=== PATIENT | male | born 1960 | race Caucasian/White ===

== ENCOUNTER 2023-10-25 13:04 | Outpatient (OUT) | payer OTHER, SELFPAY ==
--- NOTE | 2023-10-25 | XR_ITS ---
The [address] [address] Patient Name: MARCOS HERNANDEZ MRN: [id number] date: 1960 Sex: M Assigned Patient Location: Current Patient Location: Accession/Order Number: [id number] Exam Date: 10/25/2023 14:35 Report Date: 10/25/2023 15:35 At the request of: MIRACLE GONZALEZ Procedure: XR ankle RT min 3V PROCEDURE: XR ankle RT min 3V, XR foot RT min 3V COMPARISON: 08/22/2023 HISTORY: RIGTH ANKLE PAIN FINDINGS: BONES:Posterior calcaneal osteotomy with bony bridging. Moderate degenerative changes with joint space narrowing and marginal osteophyte formation. Permeative pattern of the bones. Contour deformity of the lateral cuneiform likely representing chronic change. SOFT TISSUES:Mild diffuse soft tissue swelling. Vascular calcifications EFFUSION:Small tibiotalar joint effusion OTHER: Negative. XR/XR ankle RT min 3V IMPRESSION: Posterior calcaneal osteotomy Permeative pattern of the bones, consider osteopenia Electronically authenticated by: JON COE Date: 10/25/2023 15:35
--- NOTE | 2023-10-25 | XR_ITS ---
The [address] [address] Patient Name: MARCOS HERNANDEZ MRN: [id number] date: 1960 Sex: M Assigned Patient Location: Current Patient Location: Accession/Order Number: [id number] Exam Date: 10/25/2023 14:35 Report Date: 10/25/2023 15:35 At the request of: MIRACLE GONZALEZ Procedure: XR foot RT min 3V PROCEDURE: XR ankle RT min 3V, XR foot RT min 3V COMPARISON: 08/22/2023 HISTORY: RIGTH ANKLE PAIN FINDINGS: BONES:Posterior calcaneal osteotomy with bony bridging. Moderate degenerative changes with joint space narrowing and marginal osteophyte formation. Permeative pattern of the bones. Contour deformity of the lateral cuneiform likely representing chronic change. SOFT TISSUES:Mild diffuse soft tissue swelling. Vascular calcifications EFFUSION:Small tibiotalar joint effusion OTHER: Negative. XR/XR foot RT min 3V IMPRESSION: Posterior calcaneal osteotomy Permeative pattern of the bones, consider osteopenia Electronically authenticated by: JON COE Date: 10/25/2023 15:35
== END 2023-10-25 13:05 | disposition home or self-care (01) ==
LOC: EC 13:05
PROVIDERS: Visit Provider Podiatrist Foot & Ankle Surgery
DX: M79.671 Pain in right foot (principal); M25.571 Pain in right ankle and joints of right foot; Z98.890 Other specified postprocedural states
CPT/HCPCS: 73610; 73630